=== PATIENT | female | born 1995 | race Caucasian/White ===

== ENCOUNTER 2022-01-26 20:31 | Emergency (ER) | payer SELFPAY ==
[~2022-01-26] VITALS: Ht 160 cm; Wt 120.5 kg
[2022-01-26 21:37] LABS: BASOPHILS # (AUTO) 0.1 X10'3 (0-0.2); BASOPHILS % (AUTO) 1.2 % (0-1); EOSINOPHILS # (AUTO) 0.5 X10'3 (0-0.9); EOSINOPHILS % (AUTO) 6.4 % (0-6); HEMATOCRIT 43.3 % (35.0-45.0); HEMOGLOBIN 14.7 g/dl (12.0-16.0); LYMPHOCYTES # (AUTO) 2.6 X10'3 (1.1-4.8); LYMPHOCYTES % (AUTO) 34.6 % (21-51); MEAN CORPUSCULAR HEMOGLOBIN 27.9 PG (27.0-31.0); MEAN CORPUSCULAR VOLUME 82.1 FL (78-98); MEAN PLATELET VOLUME 7.8 FL (7.4-10.4); MONOCYTES # (AUTO) 0.4 X10'3 (0-0.9); MONOCYTES % (AUTO) 4.9 % (2-12); NEUTROPHILS # (AUTO) 3.9 X10'3 (1.8-7.7); NEUTROPHILS % (AUTO) 52.9 % (42-75); PLATELET COUNT 307 X10'3 (140-440); RED BLOOD COUNT 5.28 X10'6 (4.20-5.60); RED CELL DISTRIBUTION WIDTH 15.4 % (11.5-14.5); WHITE BLOOD COUNT 7.4 X10'3 (4.5-11.0)
[2022-01-26 21:42] LABS: ALANINE AMINOTRANSFERASE 168 U/L (12-78); ALBUMIN 3.9 G/DL (3.4-5.0); ALBUMIN/GLOBULIN RATIO 0.9 (1.1-1.5); ALKALINE PHOSPHATASE 103 IU/L (46-116); ANION GAP 10 (8-16); ASPARTATE AMINO TRANSFERASE 128 U/L (10-37); BILIRUBIN,TOTAL 0.7 MG/DL (0.1-1.0); BLOOD UREA NITROGEN 11 MG/DL (7-18); BUN/CREATININE RATIO 16.2 (6.6-38.0); CHLORIDE 101 MMOL/L (99-107); CREATININE 0.68 MG/DL (0.40-0.90); ETHANOL < 0.010 GM/DL (0.0-0.010); GLUCOSE 289 MG/DL (70-104); SODIUM 139 MMOL/L (135-145); TOTAL CARBON DIOXIDE 27.6 MMOL/L (24-32); TOTAL PROTEIN 8.2 G/DL (6.4-8.2); eGFR > 90 ML/MIN
[2022-01-26 22:13] LABS: URINE HCG NEGATIVE (NEG)
[2022-01-26 22:23] LABS: URINE AMPHETAMINE SCREEN NEGATIVE (Neg); URINE BARBITUATE SCREEN NEGATIVE (Neg); URINE BENZODIAZEPINES SCREEN NEGATIVE (Neg); URINE CANNABINOID SCREEN NEGATIVE (Neg); URINE COCAINE SCREEN NEGATIVE (Neg); URINE METHADONE SCREEN NEGATIVE (Neg); URINE OPIATE SCREEN NEGATIVE (Neg); URINE PHENCYCLIDINE SCREEN NEGATIVE (Neg)
--- NOTE | 2022-01-26 23:15 | NUR ---
PT CAME IN WITH MIL. [facility] WAS APPROVED/VERBALIZED POINT OF CONTACT FOR PT. ROSA NAME IS LILIANA RANDLE. PLEASE CONTACT LILIANA WITH UPDATED INFORMATION OR UPON PICK-UP NEED. [phone] Addendum: 01/27/22 at 0011 by KENTRELL Back up phone number for Liliana Randle is [phone]
--- NOTE | 2022-01-27 00:32 | NUR ---
Patient received at 0000 brought in by family due to patient stating intent to end her life. Patient does not currently have a plan or history of suicide attempts. Patient was place on a 1799. Patient was moved from main ER to overflow at 0010. Patient is resting in bed 24. Patient has been changed into green scrubs and belongings have been bagged and labeled.
--- NOTE | 2022-01-27 02:30 | NUR ---
Patient continues to sleep quietly . Breathes are even and unlabored
--- NOTE | 2022-01-27 04:01 | NUR ---
Breaking nurse. Pt sleeping on her side. Equal rise and fall of chest.
--- NOTE | 2022-01-27 04:58 | NUR ---
Patient is observed sleeping. No needs at this time
--- NOTE | 2022-01-27 07:30 | NUR ---
Patient was finally able to give urine sample. Patient now sitting in bed waiting for breakfast.
--- NOTE | 2022-01-27 08:11 | NUR ---
pt called, pt did not wish to speak to him. I told him to call back, he wanted information about her condition, none was given.
--- NOTE | 2022-01-27 09:30 | NUR ---
Patient ate breakfast, currently resting quietly. has called three times to talk to her. Patient keeps refusing. Patients mother in law called to check in. Patients gave permission for mother in law to have updates.
[2022-01-27 09:32] LABS: CLARITY,URINE SLIGHTLY CLOUDY (Clear); COLOR,URINE YELLOW (Yellow); GLUCOSE, URINE >=1000 mg/dl (Neg); KETONES,URINE 15 mg/dl (Neg); LEUKOCYTE ESTERASE ,URINE SMALL (Neg); NITRITES, URINE NEGATIVE (Neg); OCCULT BLOOD,URINE MODERATE (Neg); PH,URINE 6.5 (4.8-8.0); PROTEIN,URINE NEGATIVE (Neg)
[2022-01-27 09:36] LABS: UA COLLECTION TYPE URINAL
[2022-01-27 09:38] LABS: BACTERIA,URINE 2+ /HPF (Neg); MUCUS STRANDS FEW /LPF (Neg); RBC,URINE 0-2 /HPF (0-2); SQUAMOUS EPITHELIAL CELL,UR MANY /LPF (FEW); WBC,URINE 30-50 /HPF (0-4)
--- NOTE | 2022-01-27 11:33 | NUR ---
Patient currently sleeping quietly. Packet has been sent.
--- NOTE | 2022-01-27 13:33 | NUR ---
Patient observed sitting on edge of bed eating snacks. Patient called back mother in law and appeared happy after phone call. Patient currently waiting to be seen by [facility].
--- NOTE | 2022-01-27 15:58 | NUR ---
Patient resting in bed except for getting up to you restroom. No needs at this time
[2022-01-27] MEDS ORDERED: NORG1TAB12 PO (17:34)
[2022-01-27] MEDS ORDERED: SERT-153 PO (17:34)
--- NOTE | 2022-01-27 17:41 | NUR ---
Patient sitting onn edge of bed getting vitals done. Packet was recent to [facility]. [facility] will be seeing her shortly. Patient waiting for dinner
[2022-01-27 18:39] VITALS: BP 142/86
== END 2022-01-27 18:42 | disposition home or self-care (01) ==
LOC: ER 20:31
DX: F32.A Depression, unspecified (principal); Z20.822 Contact with and (suspected) exposure to COVID-19; E11.9 Type 2 diabetes mellitus without complications; Z87.442 Personal history of urinary calculi; Z79.899 Other long term (current) drug therapy
CPT/HCPCS: 36415; 80053; 80305; 80320; 81001; 81025; 85025; 87635; 99285; C9803